=== PATIENT | male | born 1990 | race African-American/Black ===

== ENCOUNTER 2017-07-27 20:26 | Emergency (ER) | payer OTHER ==
[~2017-07-27] VITALS: Ht 170.2 cm; Wt 81.5 kg
[2017-07-27] MEDS ORDERED: FLUORESCEIN SODIUM 1 MG STRIP ONE (21:57)
[2017-07-27] MEDS ORDERED: PROPARACAINE HCL 0.5% 15 ML OPHTHALMIC SOLUTION OU ONE (22:00)
[2017-07-27 22:56] VITALS: BP 122/67
== END 2017-07-27 23:04 | disposition home or self-care (01) ==
LOC: EMS 20:27
DX: H01.003 Unspecified blepharitis right eye, unspecified eyelid (principal); H01.006 Unspecified blepharitis left eye, unspecified eyelid
CPT/HCPCS: 99282; 99283